=== PATIENT | female | born 1925 | race Caucasian/White ===

== ENCOUNTER 2017-10-13 11:47 | Emergency (ER) ==
[2017-10-13 11:58] VITALS: TEMP 98.2; BMI 26.2
[2017-10-13 12:20] VITALS: BP 180/78
[2017-10-13] MEDS ORDERED: DECADRON 4 MG/ML SDV IM STA (13:27)
[2017-10-13] MEDS ORDERED: COLCRYS PO STA (13:29)
--- NOTE | 2017-10-13 13:31 | ED.PDOC ---
General ED Provider: Dr. NEVAEH GRACE Chief Complaint: Finger Pain/Injury Stated Complaint: right middlle finger nodule Time Seen by Physician: 12:00 (see photos) Mode of Arrival: Walk-In Information Source: Patient Exam Limitations: No limitations Primary Care Provider: SKINNY GIMENEZ Nursing and Triage Documentation Reviewed and Agree: Yes Reviewed sepsis parameters & appropriate labs ordered?: Yes System Inflammatory Response Syndrome: Not Applicable Sepsis Protocol: For patient's 13 years and over: Temp is 96.8 and below OR 101 and greater Pulse >90 BPM Resp >20/minute Acutely Altered Mental Status Are patient's symptoms suggestive of a new infection, such as: -Pneumonia -Skin, Soft Tissue -Endocarditis -UTI -Bone, Joint Infection -Implantable Device -Acute Abdominal Infection -Wound Infection -Meningitis -Blood Stream Catheter Infection -Unknown System Inflammatory Response Syndrome: Not Applicable Musculoskeletal Complaint Exam - Hand/Wrist Complaint/Exam Location of Pain: Reports: Right, Digit #3 Mechanism of Injury: Reports: No known trauma Onset/Duration: history of gout 1 week Symptoms Are: Still present Onset of Pain: Reports: Days Initial Severity: Severe Current Severity: Severe Location: Reports: Discrete Character: Reports: Aching Alleviating: Reports: None Aggravating: Reports: None Associated Signs and Symptoms: Reports: Swelling, Redness. Denies: Bruising, Fever, Weakness, Numbness, Tingling Related History: Reports: Similar episode Hand/Wrist Findings: Present: Swelling Differential Diagnoses: Gout Review of Systems - Review Of Systems Constitutional: Reports: No symptoms Eyes: Reports: No symptoms Ears, Nose, Mouth, Throat: Reports: No symptoms Respiratory: Reports: No symptoms Cardiac: Reports: No symptoms GI: Reports: No symptoms : Reports: No symptoms Musculoskeletal: Reports: Other (see photos) Skin: Reports: No symptoms Neurological: Reports: No symptoms Endocrine: Reports: No symptoms Hematologic/Lymphatic: Reports: No symptoms All Other Systems: Reviewed and Negative Past Medical History - Past Medical History Previously Healthy: Yes Endocrine: Reports: None Cardiovascular: Reports: Hypertension Respiratory: Reports: None Hematological: Reports: None Gastrointestinal: Reports: None Genitourinary: Reports: None Neuro/Psych: Reports: None Musculoskeletal: Reports: Gout Cancer: Reports: None Last Menstrual Period: n/a - Surgical History General Surgical History: Reports: None - Family History Family History: Reports: None - Social History Smoking Status: Never smoker Hx Substance Use: No Alcohol Screening: None Physical Exam - Physical Exam Appearance: Well-appearing, No pain distress, Well-nourished Eyes: KIRSTIN, EOMI, Conjunctiva clear ENT: Ears normal, Nose normal, Oropharynx normal Respiratory: Airway patent, Breath sounds clear, Breath sounds equal, Respirations nonlabored Cardiovascular: RRR, Pulses normal, No rub, No murmur GI/: Soft, Nontender, No masses, Bowel sounds normal, No Organomegaly Musculoskeletal: Limited ROM (please refer to photo) Skin: Warm, Dry, Normal color Neurological: Sensation intact, Motor intact, Reflexes intact, Cranial nerves intact, Alert, Oriented Psychiatric: Affect appropriate, Mood appropriate Critical Care Note - Critical Care Note Total Time (mins): 0 Course - Course Hematology/Chemistry: 10/13/17 12:50 Orders, Labs, Meds: Lab Review 10/13/17 12:50 Sodium 138 Potassium 4.1 Chloride 102 Carbon Dioxide 30 Anion Gap 10.1 BUN 19 H Creatinine 0.73 Estimated GFR (MDRD) 75.00 BUN/Creatinine Ratio 26.02 Glucose 147 H Uric Acid 5.8 Calcium 9.3 Total Bilirubin 0.5 AST 13 L ALT < 6 L Alkaline Phosphatase 96 Total Protein 6.7 Albumin 3.1 L Globulin 3.6 Albumin/Globulin Ratio 0.86 Orders Category Date Time Status COMPREHENSIVE METABOLIC PANEL Stat LAB 10/13/17 12:34 Ordered URIC ACID Stat LAB 10/13/17 12:34 Ordered Dexamethasone 4 mg/ml Inj [Decadron 4 mg/ml Sdv] MEDS 10/13/17 13:27 Stat 4 mg IM ONCE STA HAND, RIGHT 3 VIEWS Stat RADS 10/13/17 13:28 Ordered Medications Discontinued Medications Generic Name Dose Route Start Last Admin Trade Name Freq PRN Reason Stop Dose Admin Dexamethasone Sodium Phosphate 4 mg 10/13/17 13:27 Decadron 4 Mg/Ml Sdv IM 10/13/17 13:28 ONCE STA Vital Signs: Temp Pulse Resp BP Pulse Ox 10/13/17 12:19 180/78 H 10/13/17 11:48 98.2 F 72 16 222/80 H 95 Departure - Departure Time of Disposition: 13:31 Disposition: HOME SELF-CARE Discharge Problem: Gouty tophi Instructions: Gout (ED), Low Purine Diet (ED) Condition: Good Pt referred to PMD for follow-up: Yes IPMP verified?: Yes Additional Instructions: Please call your Family Physician as soon as possible to schedule a follow-up appointment. Allergies/Adverse Reactions: Allergies codeine Adverse Reaction (Verified 10/13/17 11:55) quinine Adverse Reaction (Verified 10/13/17 11:55) Home Medications: Ambulatory Orders Amlodipine Besylate 5 mg PO BEDTIME 10/13/17 Aspirin 81 mg PO DAILY 10/13/17 Atenolol/Chlorthalidone [Atenolol-Chlorthalidone 100-25] 1 each PO DAILY Losartan Potassium 100 mg PO DAILY 10/13/17 Potassium Chloride [K-Dur] 20 meq PO DAILY 10/13/17
--- NOTE | 2017-10-13 13:50 | DI ---
EXAM: Four views of the right hand. History: Right hand pain and gout. Findings: No acute fracture or dislocation. Severe narrowing of the third PIP joint with osteophyte formation and severe adjacent soft tissue swelling. There are also marginal osseous erosions. Vicki re narrowing of the third MCP joint with osteophyte formation and subchondral collapse or erosion of the third metatarsal head. Severe narrowing of the first carpal metacarpal joint with endplate scler osis and osteophyte formation. Moderate joint space narrowing seen elsewhere. There is chondrocalci nosis within the triangular fibrocartilage. 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 Gout and osteoarthritis are likely the etiologies of the arthritis.
== END 2017-10-13 14:03 | disposition home or self-care (01) ==
LOC: ED 11:47
DX: M1A.9XX1 Chronic gout, unspecified, with tophus (tophi) (principal)
CPT/HCPCS: 36415; 80053; 84550; 96372; 99283